=== PATIENT | female | born 1945 | race Caucasian/White ===

== ENCOUNTER 2022-03-14 18:25 | Emergency (ER) | payer MEDICARE, OTHER, SELFPAY ==
[2022-03-14] VITALS (8 sets, daily range): BP systolic 121–171; BP diastolic 64–77; PULSE 73–116; RESP 16–24; TEMP 36.1; O2SAT 95–98; BMI 43.2
--- NOTE | 2022-03-14 18:28 | DI.CT.S_ITS ---
PROCEDURE: CT FACIAL BONES WO CON INDICATIONS: fall, facial injury TECHNIQUE: Noncontrast 2.5 mm thick axial images acquired from the mandible through the frontal sinuses, with coronal and sagittal reformatting. For radiation dose reduction, the following was used: automated exposure control, adjustment of mA and/or kV according to patient size. COMPARISON: None. FINDINGS: Image quality: Excellent. Bones and teeth: Orbital angulo are intact. Sinus angulo show no fracture or deformity. Age-indeterminate nasal bone fracture. Rightward septal deviation. Visualized portions of the mandible demonstrate no fractures or subluxation. TMJ arthrosis. Zygomatic arches are intact. Pterygoid plates are intact. Visualized portions of the skull base and auditory canals are intact. Sinuses: Paranasal sinuses are aerated, without fluid levels, mucosal thickening, or mucoceles. Mastoid air cells are aerated. Soft tissues: No edema, masses, or fluid collections. No enlarged lymph nodes. Left supraorbital soft tissue contusion. Vascular: Visualized vascular structures appear normal in the absence of contrast. Bony vascular foramina and canals are intact. IMPRESSION: Nasal bone fracture. Correlate for point tenderness to determine acuity. There is also rightward septal deviation. Left supraorbital soft tissue contusion. Dictated by: Ori Arcos M.D. on 03/14/2022 at 19:14 Approved by: Ori Arcos M.D. on 03/14/2022 at 19:18
--- NOTE | 2022-03-14 18:28 | DI.CT.S_ITS ---
PROCEDURE: CT CERVICAL SPINE WO CON INDICATIONS: fall, facial injury TECHNIQUE: Noncontrast 3 mm thick sections acquired from the skull base to the T4 level. Sagittal and coronal reformats were then constructed. For radiation dose reduction, the following was used: automated exposure control, adjustment of mA and/or kV according to patient size. COMPARISON: None. FINDINGS: Image quality: Excellent. Bones: There is reversal of the normal cervical lordosis. 2-3 millimeters of anterolisthesis of C3 on C4. Moderate spondylosis. Age-indeterminate C5 wedging. There is no definite fracture or acute dislocation. Soft tissues: Prevertebral soft tissues are normal in thickness. No paravertebral hematomas. No apical pneumothoraces. IMPRESSION: No definite acute fracture or traumatic subluxation of the cervical spine. Above described spine findings are probably related to degeneration. Dictated by: Oir Arcos M.D. on 03/14/2022 at 19:11 Approved by: Ori Arcos M.D. on 03/14/2022 at 19:14
--- NOTE | 2022-03-14 18:28 | DI.CT.S_ITS ---
PROCEDURE: CT HEAD/BRAIN WO CON INDICATIONS: fall, head injury, on thinners TECHNIQUE: Noncontrast 4.5 mm thick angled axial sections acquired from the foramen magnum to the vertex, with coronal and sagittal reformats. For radiation dose reduction, the following was used: automated exposure control, adjustment of mA and/or kV according to patient size. COMPARISON: [facility], CT, CT HEAD WITHOUT CONTRAST, 01/31/2022, 13:36. FINDINGS: Image quality: Excellent. CSF spaces: Basal cisterns are patent. No extra-axial fluid collections. Ventricles are normal in size and shape. Brain: No midline shift. No intracranial masses or hemorrhage. Novoa-white matter interface is normal. Similar appearance of probably ectatic basilar artery. Vascular calcifications are present. Upam-ql-frvhfefg volume loss and likely chronic small vessel ischemic changes. Skull and face: Calvarium and visualized facial bones are intact, without suspicious lesions. Left supraorbital soft tissue contusion. Sinuses: Visualized sinuses and mastoids are clear. IMPRESSION: No acute intracranial abnormality. Left supraorbital soft tissue contusion. Chronic volume loss and probable small vessel ischemic changes. Dictated by: Ori Arcos M.D. on 03/14/2022 at 19:05 Approved by: Ori Arcos M.D. on 03/14/2022 at 19:07
--- NOTE | 2022-03-14 19:05 | ED_ITS ---
HPI - Fall General Chief Complaint: Fall Stated Complaint: GLF on sidewalk Time Seen by Provider: 03/14/22 18:28 Source: patient and EMS Mode of arrival: EMS History of Present Illness HPI Narrative: 76-year-old female nonsmoker on aspirin presents by EMS for evaluation of an accidental ground level fall resulting in head and face injury. She was in her normal state of health and had a local festival when a child ran in front of her and she tripped, falling forward and striking her head and face on the ground. She denies any other injury. She denies any loss of consciousness and has full recall of the event. She is not been altered whatsoever, denies any blurred vision or trouble with speech. She did strike her nose and face. She denies extremity injuries. She has no chest pain or shortness of breath. She denies any nausea or vomiting. She is activated as a modified trauma given fall with head injury on anti-platelet agents. Related Data Allergies Allergy/AdvReac Type Severity Reaction Status Date / Time No Known Drug Allergies Allergy Verified 03/14/22 18:32 Review of Systems Review of Systems Narrative: GENERAL: Denies chills, fatigue, malaise, fever, sweats. HEENT: See HPI RESPIRATORY: Denies dyspnea, cough, wheezing, hemoptysis, sputum. CARDIOVASCULAR: Denies chest pain, palpitations, orthopnea, edema, GASTROINTESTINAL: Denies nausea, vomiting, abdominal pain, diarrhea, constipation, melena. : Denies dysuria, frequency, incontinence, hematuria, urinary retention. MUSCULOSKELETAL: denies weakness, joint pain, or bony pain SKIN: Denies rash, skin lesions, or other NEUROLOGIC: Denies weakness, headache, numbness, change in speech, confusion, seizures, incoordination. PSYCHIATRIC: No concerning psychosocial issues. 12 point review of systems is negative except for those stated above Patient History Social History Smoking Status: Never smoker Smoking Status: Never smoker Substance Use Type: does not use Exam Narrative Exam Narrative: GENERAL: [76] year old patient appears stated age. Well-developed patient, in mild distress. GCS 15 HEAD: Moderate swelling to the bridge of nose with superficial abrasions, abrasions of forehead and above left eye. No evidence of depressed skull fracture EYES: Pupils equal round and reactive. No hyphema Extraocular motions intact. No scleral icterus. No injection or drainage. ENT: Nose without bleeding, purulent drainage. No nasal septal hematoma, throat without erythema, tonsillar hypertrophy or exudate. Airway patent. NECK: Trachea midline. Non tender CARDIOVASCULAR: Regular rate and rhythm without murmurs, gallops, or rubs. RESPIRATORY: Clear to auscultation. Breath sounds equal bilaterally. No wheezes, rales, or rhonchi. GASTROINTESTINAL: Abdomen soft, non-tender, nondistended. EXTREMITIES: No edema or joint tenderness. BACK: Nontender without deformity or crepitance. No flank tenderness. NEURO: AOx3. SKIN: No rash or erythema of visible areas Initial Vital Signs Initial Vital Signs: Vital Signs Temperature 97 F L 03/14/22 18:29 Pulse Rate 73 03/14/22 18:29 Respiratory Rate 16 03/14/22 18:29 Blood Pressure 121/64 03/14/22 18:29 Pulse Oximetry 98 03/14/22 18:29 Oxygen Delivery Method 03/14/22 18:29 Course Orders Ordered: ED Orders 03/14/22 18:28 CT cervical spine wo con Stat CT facial bones wo con Stat CT head/brain wo con Stat 03/14/22 19:13 EKG-12 Lead Routine Discontinued Medications Hydrocodone Bitart/Acetaminophen (Hydrocodone/Acet 5/325 Prepack) 1 bottle MISC SEEINSTR ONE Stop: 03/14/22 20:01 Last Admin: 03/14/22 20:19 Dose: 1 bottle Documented By: MERLY Ondansetron HCl (Ondansetron 4 Mg Odt Prepack) 1 bottle MISC SEEINSTR ONE Stop: 03/14/22 20:01 Last Admin: 03/14/22 20:19 Dose: 1 bottle Documented By: SB Vital Signs Vital signs: Vital Signs - 8 hr 03/14/22 18:29 03/14/22 20:24 03/14/22 18:54 Temperature 97 F L Pulse Rate 73 92 H 102 H Respiratory Rate 16 Blood Pressure 121/64 139/77 Pulse Oximetry 98 96 98 Oxygen Delivery Method Room Air Room Air 03/14/22 19:00 03/14/22 19:18 03/14/22 19:18 Temperature Pulse Rate 103 H 116 H Respiratory Rate 24 Blood Pressure 171/72 H Pulse Oximetry 97 97 Oxygen Delivery Method 03/14/22 19:30 03/14/22 20:20 03/14/22 20:21 Temperature Pulse Rate 104 H 103 H Respiratory Rate Blood Pressure Pulse Oximetry 97 95 96 Oxygen Delivery Method 03/14/22 20:21 Temperature Pulse Rate Respiratory Rate Blood Pressure 139/77 Pulse Oximetry Oxygen Delivery Method MDM - Fall Imaging Data CT scan - head: Radiologist's Impression: Close Head CT (Signed) Isrrael,Ori - 03/14/[address] (Signed) Isrrael,Ori - 03/14/[address] (Signed) Isrrael,Ori - 03/14/22 Launch?[address] [address] [address] Scan Report Signed Patient: Kita Gee MR#: [id number] : 1945 Acct:[id number] Age/Sex: 76 / F Date of Service: 03/14/22 Loc: ED Accession Number: [id number] ?? Procedure: CT head/brain wo con Ordering Provider: Nito Sellers D.O. PROCEDURE:? CT HEAD/BRAIN WO CON ? INDICATIONS:? fall, head injury, on thinners ? TECHNIQUE:? Noncontrast 4.5 mm thick angled axial sections acquired from the foramen magnum to the vertex, with coronal and sagittal reformats.? For radiation dose reduction, the following was used:? automated exposure control, adjustment of mA and/or kV according to patient size.? ? COMPARISON:? [facility], CT, CT HEAD WITHOUT CONTRAST, 01/31/2022, 13:36. ? FINDINGS:? Image quality:? Excellent.? ? CSF spaces:? Basal cisterns are patent.? No extra-axial fluid collections.? Ventricles are normal in size and shape.? ? Brain:? No midline shift.? No intracranial masses or hemorrhage.? Novoa-white matter interface is normal.? Similar appearance of probably ectatic basilar artery.? Vascular calcifications are present.? Cnvy-ax-sljbedwl volume loss and likely chronic small vessel ischemic changes. ? Skull and face:? Calvarium and visualized facial bones are intact, without suspicious lesions.? Left supraorbital soft tissue contusion. ? Sinuses:? Visualized sinuses and mastoids are clear.? ? IMPRESSION:? No acute intracranial abnormality.? Left supraorbital soft tissue contusion. Chronic volume loss and probable small vessel ischemic changes.? ? Dictated by: Ori Arcos M.D. on 03/14/2022 at 19:05 ? ? Approved by: Ori Arcos M.D. on 03/14/2022 at 19:07 ? CT - cervical spine: Radiologist's Impression: [place] [id number] CT Scan Report Signed Patient: Kita Gee MR#: [id number] : 1945 Acct:[id number] Age/Sex: 76 / F Date of Service: 03/14/22 Loc: ED Accession Number: [id number] ?? Procedure: CT cervical spine wo con Ordering Provider: Nito Sellers D.O. PROCEDURE:? CT CERVICAL SPINE WO CON ? INDICATIONS:? fall, facial injury ? TECHNIQUE:? Noncontrast 3 mm thick sections acquired from the skull base to the T4 level.? Sagittal and coronal reformats were then constructed.? For radiation dose reduction, the following was used:? automated exposure control, adjustment of mA and/or kV according to patient size.? ? COMPARISON:? None. ? FINDINGS:? Image quality:? Excellent.? ? Bones:? There is reversal of the normal cervical lordosis.? 2-3 millimeters of anterolisthesis of C3 on C4.? Moderate spondylosis.? Age-indeterminate C5 wedging.? There is no definite fracture or acute dislocation. ? Soft tissues:? Prevertebral soft tissues are normal in thickness.? No paravertebral hematomas.? No apical pneumothoraces.? ? ? IMPRESSION:? No definite acute fracture or traumatic subluxation of the cervical spine.? Above described spine findings are probably related to degeneration. ? Dictated by: Ori Arcos M.D. on 03/14/2022 at 19:11 ? ? Approved by: Ori Arcos M.D. on 03/14/2022 at 19:14 ? Facial Bones: Radiologist's Impression: [address] [address] [address] Scan Report Signed Patient: Kita Gee MR#: [id number] : 1945 Acct:[id number] Age/Sex: 76 / F Date of Service: 03/14/22 Loc: ED Accession Number: [id number] ?? Procedure: CT cervical spine wo con Ordering Provider: Nito Sellers D.O. PROCEDURE:? CT CERVICAL SPINE WO CON ? INDICATIONS:? fall, facial injury ? TECHNIQUE:? Noncontrast 3 mm thick sections acquired from the skull base to the T4 level.? Sagittal and coronal reformats were then constructed.? For radiation dose reduction, the following was used:? automated exposure control, adjustment of mA and/or kV according to patient size.? ? COMPARISON:? None. ? FINDINGS:? Image quality:? Excellent.? ? Bones:? There is reversal of the normal cervical lordosis.? 2-3 millimeters of anterolisthesis of C3 on C4.? Moderate spondylosis.? Age-indeterminate C5 wedging.? There is no definite fracture or acute dislocation. ? Soft tissues:? Prevertebral soft tissues are normal in thickness.? No paravertebral hematomas.? No apical pneumothoraces.? ? ? IMPRESSION:? No definite acute fracture or traumatic subluxation of the cervical spine.? Above described spine findings are probably related to degeneration. ? Dictated by: Ori Arcos M.D. on 03/14/2022 at 19:11 ? ? Approved by: Ori Arcos M.D. on 03/14/2022 at 19:14 ? Discharge Plan Departure Patient Disposition: Home Clinical Impression: Closed fracture nasal bone Instructions: DI for Nose Fracture Activity Restrictions/Additional Instructions: *You have been diagnosed with [fall with nasal fracture. As we discussed your head CT and neck CT showed no evidence of fracture or bleeding, however the images of your face to suggest a nasal bone fracture, which thankfully we do not need to do anything about just today.] *What to do: *Please continue to take your regular medications as directed. [ ] New medication prescriptions sent to your pharmacy: [ ] [ ] New medication written as a paper prescription [ x] No new medications given *Please follow up with your primary care provider in 2-3 days, call for an appointment. Let them know you were seen in the Emergency Department and that we ask that you be seen in follow up. We will electronically transmit a record of today's note if your PCP is in our system * as we discussed I have included contact information for the Ear Nose and Throat doctor, please call the office on Thursday *If you do not have a primary care provider please contact the [facility] Resource line at [phone]. They will ask some questions about your medical history and help get you set up with a doctor in the community. *Return to Emergency Department if you should have any new, worsening or concerning symptoms, such as [fever greater than 101 F, shaking chills, worsening pain, persistent vomiting or other bothersome symptoms] Referrals: Huy Pradhan MD [Physician] - Visit Report Forms: Patient Portal/API
[2022-03-14] MEDS: ONDANSETRON 4 MG ODT PREPACK 1 BOTTLE MISC (20:19)
[2022-03-14] MEDS: HYDROCODONE/ACET 5/325 PREPACK 1 BOTTLE MISC (20:19)
== END 2022-03-14 20:24 | disposition home or self-care (01) ==
PROVIDERS: Emergency Provider Emergency Medicine
DX: S02.2XXA Fracture of nasal bones, initial encounter for closed fracture (principal); W19.XXXA Unspecified fall, initial encounter
CPT/HCPCS: 70450; 70486; 72125; 93005; 99283; 99284